=== PATIENT | female | born 1980 ===

== ENCOUNTER 2024-11-28 06:17 | Day surgery (SDC) | payer OTHER, SELFPAY | END 2024-11-28 11:58 | disposition home or self-care (01) | LOC: GI 06:17 | PROVIDERS: ATTENDING PHYSICIAN Internal Medicine Gastroenterology | DX: Z12.11 Encounter for screening for malignant neoplasm of colon (principal); K64.8 Other hemorrhoids; K63.5 Polyp of colon; Z83.719 Family history of colon polyps, unspecified | CPT/HCPCS: 45385; 88305 ==